=== PATIENT | male | born 1970 | race African-American/Black ===

== ENCOUNTER 2017-01-03 19:21 | Emergency (ER) | payer BC, OTHER ==
[2017-01-03] MEDS ORDERED: Penicillin V Potassium 500 MG Tab PO ONE (20:11)
[2017-01-03] MEDS ORDERED: Ibuprofen 800 MG Tab PO ONE (20:12)
--- NOTE | 2017-01-03 20:17 | EDM.PDOC ---
ED HPI GENERAL MEDICAL PROBLEM - General Chief Complaint: General Stated Complaint: PT HAS TOOTHACHE Time Seen by Provider: 01/03/17 20:03 Source of Information: Reports: Patient History Limitations: Reports: No limitations - History of Present Illness INITIAL COMMENTS - FREE TEXT/NARRATIVE: HISTORY AND PHYSICAL: History of present illness: [46 show male complaining of right jaw toothache. Third molar from the back. Painful and tender hurts with chewing. No chest pain shortness of breath fevers chills sweats headache or stiff neck she has not been able to see a dentist. He is a cavity there. No facial swelling or mass] Review of systems: As per history of present illness and below otherwise all systems reviewed and negative. Past medical history: As per history of present illness and as reviewed below otherwise noncontributory. Surgical history: As per history of present illness and as reviewed below otherwise noncontributory. Social history: No reported history of drug or alcohol abuse. Family history: As per history of present illness and as reviewed below otherwise noncontributory. Physical exam: #30 with cavity no soft tissue swelling or mass. Positive tenderness with percussion. Normal submentum and oropharynx. No anterior cervical adenopathy or facial asymmetry HEENT: Atraumatic, normocephalic, pupils reactive, negative for conjunctival pallor or scleral icterus, mucous membranes moist, throat clear, neck supple, nontender, trachea midline. Lungs: Clear to auscultation, breath sounds equal bilaterally, chest nontender. Heart: S1S2, regular, negative for clicks, rubs, or JVD. Abdomen: Soft, nondistended, nontender. Negative for masses or hepatosplenomegaly. Negative for costovertebral tenderness. Pelvis: Stable nontender. Genitourinary: Deferred. Rectal: Deferred. Extremities: Atraumatic, negative for cords or calf pain. Neurovascular unremarkable. Neuro: Awake, alert, oriented. Motor and sensory unremarkable throughout. Exam nonfocal. Diagnostics: [] Therapeutics: [] Impression: [] Plan: [Patient with toothache and cavity. Well-appearing afebrile otherwise benign exam. Will Rx penicillin patient aware to take NSAIDs and Tylenol followup PCP and dentist] Definitive disposition and diagnosis as appropriate pending reevaluation and review of above. tooth Pain Score (Numeric/FACES): 9 - Related Data Allergies Allergy/AdvReac Type Severity Reaction Status Date / Time No Known Allergies Allergy Verified 01/03/17 19:38 Home Meds: Home Meds . [No Known Home Meds] 03/02/15 [History] Past Medical History - Past Health History Medical/Surgical History: Denies Medical/Surgical History Other Endocrine/Metabolic History: borderline type 2 diabetis - Infectious Disease History Infectious Disease History: Reports: None Social & Family History - Family History Family Medical History: Noncontributory - Tobacco Use Smoking Status *Q: Never Smoker - Alcohol Use Days Per Week of Alcohol Use: 0 - Recreational Drug Use Recreational Drug Use: No ED ROS GENERAL - Review of Systems Review Of Systems: See Below (History of present illness) ED EXAM, GENERAL - Physical Exam Exam: See Below (History of present illness) Course - Vital Signs Last Recorded V/S: Last Vital Signs Temp 36.8 C 01/03/17 19:39 Pulse 74 01/03/17 19:39 Resp 18 01/03/17 19:39 BP 146/90 H 01/03/17 19:39 Pulse Ox 99 01/03/17 19:39 - Orders/Labs/Meds Orders: Active Orders 24 hr Category Date Time Status Ibuprofen [Motrin] Med 01/03/17 20:12 Once 800 mg PO ONETIME ONE Penicillin V Potassium [Veetids] Med 01/03/17 20:11 Once 500 mg PO Q12HR ONE Medication Orders Ibuprofen (Motrin) 800 mg PO ONETIME ONE Stop: 01/03/17 20:13 Penicillin V Potassium (Veetids) 500 mg PO Q12HR ONE Stop: 01/03/17 20:12 Meds: Medications Generic Name Dose Route Start Last Admin Trade Name Freq PRN Reason Stop Dose Admin Ibuprofen 800 mg 01/03/17 20:12 Motrin PO 01/03/17 20:13 ONETIME ONE Penicillin V Potassium 500 mg 01/03/17 20:11 Veetids PO 01/03/17 20:12 Q12HR ONE Departure - Departure Time of Disposition: 20:15 Disposition: Home, Self-Care 01 Condition: good Clinical Impression: Toothache, Caries Referrals: PCP,None [Primary Care Provider] - Forms: ED Department Discharge Additional Instructions: You have a cavity and causing a toothache. Finish penicillin as prescribed 4 times a day for 10 days. Take ibuprofen 800 mg every 6 hours as needed for pain and also take Tylenol every 4 hours if necessary. Followup with your dentist in 2-3 days and return immediately for new severe or worsening symptoms - My Orders Last 24 Hours: My Active Orders 01/03/17 20:11 Penicillin V Potassium [Veetids] 500 mg PO Q12HR ONE 01/03/17 20:12 Ibuprofen [Motrin] 800 mg PO ONETIME ONE - Assessment/Plan Last 24 Hours: My Active Orders 01/03/17 20:11 Penicillin V Potassium [Veetids] 500 mg PO Q12HR ONE 01/03/17 20:12 Ibuprofen [Motrin] 800 mg PO ONETIME ONE
[2017-01-03 21:07] VITALS: BP 138/79
== END 2017-01-03 20:27 | disposition home or self-care (01) ==
LOC: MW.ED 19:21
DX: K02.9 Dental caries, unspecified (principal)
CPT/HCPCS: 99283; A9270

== ENCOUNTER 2017-05-21 16:10 | Emergency (ER) | payer BC, OTHER ==
--- NOTE | 2017-05-21 16:39 | EDM.PDOC ---
ED HPI GENERAL MEDICAL PROBLEM - General Chief Complaint: Lower Extremity Injury/Pain Stated Complaint: LT FOOT HURTS Time Seen by Provider: 05/21/17 16:26 Source of Information: Reports: Patient History Limitations: Reports: No Limitations - History of Present Illness INITIAL COMMENTS - FREE TEXT/NARRATIVE: HISTORY AND PHYSICAL: [] 46-year-old black male presenting with pain to the left fourth toe History of Present Illness: []Last night patient hit his foot on the door jam as he was going through the door. He continues to have pain to the left fourth toe. Review of Systems: As per history of present illness and below otherwise all systems reviewed and negative. Past medical history: As per history of present illness and as reviewed below otherwise noncontributory. Surgical history: As per history of present illness and as reviewed below otherwise noncontributory. Social history: No reported history of drug or alcohol abuse. Family history: As per history of present illness and as reviewed below otherwise noncontributory. Physical exam: Alert and oriented gentleman answering questions appropriately speaking in full sentences HEENT: Atraumatic, normocehpalic, pupils reactive, negative for conjunctival pallor or scleral icterus, mucous membranes moist, throat clear, neck supple, nontender, trachea midline. Lungs: Clear to auscultation, breath sounds equal bilaterally, chest non tender. Heart: S1S2, regular, negative for clicks, rubs, or JVD. Abdomen: Soft, nondistended, nontender. Negative for masses or hepatossplenmegaly. Negative for costovertebral tenderness. Pelvis: Stable nontender. Genitourinary: Deferred. Rectal: Deferred Extremities: Mild edema to the fourth toe, pain upon palpation, negative for cords or calf pain. Neurovascular unremarkable. Neuro: Awake, alert, oriented. Cranial nerves II through XII unremarkable. Cerebellum unremarkable. Motor and sensory unremarkable throughout. Exam nonfocal. Diagnostics: [X-ray] Therapeutics: [] Impression: [] Plan: [] Definitive disposition and diagnosis as appropriate pending reevaluation and review of above. Onset: Sudden Duration: Hour(s): (Last night), Getting Worse Location: Reports: Lower Extremity, Left Left Feet Pain Score (Numeric/FACES): 7 - Related Data Allergies Allergy/AdvReac Type Severity Reaction Status Date / Time No Known Allergies Allergy Verified 01/03/17 19:38 Home Meds: Home Meds Blackseed Oil PRN 05/21/17 [History] Past Medical History - Past Health History Medical/Surgical History: Denies Medical/Surgical History Other Endocrine/Metabolic History: borderline type 2 diabetis - Infectious Disease History Infectious Disease History: Reports: None Social & Family History - Family History Family Medical History: Noncontributory - Tobacco Use Smoking Status *Q: Never Smoker - Alcohol Use Days Per Week of Alcohol Use: 0 - Recreational Drug Use Recreational Drug Use: No Review of Systems - Review of Systems Review Of Systems: ROS reveals no pertinent complaints other than HPI. ED EXAM, GENERAL - Physical Exam Exam: See Below (see dictation) Course - Vital Signs Last Recorded V/S: Last Vital Signs Temp 36.6 C 05/21/17 16:20 Pulse 81 05/21/17 16:20 Resp 18 05/21/17 16:20 BP 123/88 05/21/17 16:20 Pulse Ox 97 05/21/17 16:20 - Orders/Labs/Meds Orders: Active Orders 24 hr Category Date Time Status Toes Fourth Digit Lt T3 [CR] Stat Exams 05/21/17 16:30 Taken Departure - Departure Time of Disposition: 17:56 Disposition: Home, Self-Care 01 Condition: Good Clinical Impression: Fracture of phalanx of foot - Discharge Information Forms: ED Department Discharge Additional Instructions: The following information is given to patients seen in the emergency department who are being discharged to home. This information is to outline your options for follow-up care. We provide all patients seen in our emergency department with a follow-up referral. The need for follow-up, as well as the timing and circumstances, are variable depending upon the specifics of your emergency department visit. If you don't have a primary care physician on staff, we will provide you with a referral. We always advise you to contact your personal physician following an emergency department visit to inform them of the circumstance of the visit and for follow-up with them and/or the need for any referrals to a consulting specialist. The emergency department will also refer you to a specialist when appropriate. This referral assures that you have the opportunity for followup care with a specialist. All of these measure are taken in an effort to provide you with optimal care, which includes your followup. Under all circumstances we always encourage you to contact your private physician who remains a resource for coordinating your care. When calling for followup care, please make the office aware that this follow-up is from your recent emergency room visit. If for any reason you are refused follow-up, please contact the [facility] emergency department at and asked to speak to the emergency department charge nurse. Keep toe sakina taped. Third toe. Follow-up with Dr. Dumas advanced research programs director [facility] [address] [place] [phone] Please call for an appointment in the next 2 days - My Orders Last 24 Hours: My Active Orders 05/21/17 16:30 Toes Fourth Digit Lt T3 [CR] Stat - Assessment/Plan Last 24 Hours: My Active Orders 05/21/17 16:30 Toes Fourth Digit Lt T3 [CR] Stat
[2017-05-21 18:19] VITALS: BP 130/68
--- NOTE | 2017-05-22 10:15 | CR ---
EXAM DATE: 05/21/17 PATIENT'S AGE: 46 Patient: VICTORINA KELLY Facility: [place], [place] Site . Site : 1970 Study: XRay Extremity Left toe [id number]/[id number] 5:21:03 PM Ordering Physician: Doctor Harden Final Report: Indication: Injury to 4th toe. Technique: Left foot 4th digit three views. Comparison: None. Findings: There is an obliquely oriented mildly impacted fracture of the proximal 4th phalanx with possible intra-articular extension at the metatarsophalangeal joint. No additional acute osseous abnormality. No radio-opaque foreign body evident in the soft tissues. Impression: Fracture of the proximal 4th phalanx. Dictated by jJ Batista MD @ 05/21/2017 5:36:16 PM Dictated by: Jj Batista MD @ 05/21/2017 17:36:30 (Electronic Signature) Report Signed by Proxy. KAYLEE
== END 2017-05-21 18:17 | disposition home or self-care (01) ==
LOC: MW.ED 16:10
DX: S92.512A Displaced fracture of proximal phalanx of left lesser toe(s), initial encounter for closed fracture (principal); W22.8XXA Striking against or struck by other objects, initial encounter
CPT/HCPCS: 73660-26-T3; 73660-T3; 99282; 99283

== ENCOUNTER 2017-07-21 21:03 | Emergency (ER) | payer BC ==
[2017-07-21] MEDS ORDERED: Aspirin 81 MG Tab.Chew PO ONE (21:25)
[2017-07-21] MEDS ORDERED: Sodium Chloride 0.9% 10 ML Syringe FLUSH PRN (21:25)
[2017-07-21] MEDS ORDERED: Sodium Chloride 0.9% 2.5 ML Syringe FLUSH PRN (21:25)
--- NOTE | 2017-07-21 21:29 | EDM.PDOC ---
ED HPI GENERAL MEDICAL PROBLEM - General Chief Complaint: Chest Pain Stated Complaint: PT HAS CHEST PAINS Time Seen by Provider: 07/21/17 21:26 - History of Present Illness INITIAL COMMENTS - FREE TEXT/NARRATIVE: HISTORY AND PHYSICAL: History of present illness: Patient's 46-year-old black male no significant past medical history presents with concern of chest pain this only occurs when he coughs in his hip last several days he denies fever chills nausea vomiting shortness breath palpitations denies drug or alcohol abuse denies known cardiac disease. Review of systems: As per history of present illness and below otherwise all systems reviewed and negative. Past medical history: As per history of present illness and as reviewed below otherwise noncontributory. Surgical history: As per history of present illness and as reviewed below otherwise noncontributory. Social history: No reported history of drug or alcohol abuse. Family history: As per history of present illness and as reviewed below otherwise noncontributory. Physical exam: HEENT: Atraumatic, normocephalic, pupils reactive, negative for conjunctival pallor or scleral icterus, mucous membranes moist, throat clear, neck supple, nontender, trachea midline. Lungs: Clear to auscultation, breath sounds equal bilaterally, chest nontender. Heart: S1S2, regular, negative for clicks, rubs, or JVD. Abdomen: Soft, nondistended, nontender. Negative for masses or hepatosplenomegaly. Negative for costovertebral tenderness. Pelvis: Stable nontender. Genitourinary: Deferred. Rectal: Deferred. Extremities: Atraumatic, negative for cords or calf pain. Neurovascular unremarkable. Neuro: Awake, alert, oriented. Cranial nerves II through XII unremarkable. Cerebellum unremarkable. Motor and sensory unremarkable throughout. Exam nonfocal. Diagnostics: CBC CMP troponin PT/INR chest x-ray EKG Therapeutics: IV O2 monitor aspirin 324 mg by mouth Impression: #1 atypical chest pain Definitive disposition and diagnosis as appropriate pending reevaluation and review of above. Middle Chest Pain Score (Numeric/FACES): 2 - Related Data Allergies Allergy/AdvReac Type Severity Reaction Status Date / Time No Known Allergies Allergy Verified 01/03/17 19:38 Home Meds: Home Meds . [No Known Home Meds] 07/21/17 [History] Past Medical History - Past Health History Medical/Surgical History: Denies Medical/Surgical History HEENT History: Reports: None Cardiovascular History: Reports: None Respiratory History: Reports: None Gastrointestinal History: Reports: None Genitourinary History: Reports: None Musculoskeletal History: Reports: None Other Endocrine/Metabolic History: borderline type 2 diabetis - Infectious Disease History Infectious Disease History: Reports: None - Past Surgical History HEENT Surgical History: Reports: None Cardiovascular Surgical History: Reports: None Respiratory Surgical History: Reports: None GI Surgical History: Reports: None Male Surgical History: Reports: None Musculoskeletal Surgical History: Reports: None Social & Family History - Family History Family Medical History: Noncontributory - Tobacco Use Smoking Status *Q: Never Smoker Second Hand Smoke Exposure: No - Alcohol Use Days Per Week of Alcohol Use: 0 - Recreational Drug Use Recreational Drug Use: No ED ROS GENERAL - Review of Systems Review Of Systems: ROS reveals no pertinent complaints other than HPI. ED EXAM, GENERAL - Physical Exam Exam: See Below Course - Vital Signs Last Recorded V/S: Last Vital Signs Temp 36.4 C 07/21/17 21:15 Pulse 69 07/21/17 22:01 Resp 18 07/21/17 22:01 BP 130/85 07/21/17 22:01 Pulse Ox 100 07/21/17 22:01 - Orders/Labs/Meds Orders: Active Orders 24 hr Category Date Time Status Cardiac Monitoring [RC] . DIRECTED Care 07/21/17 21:25 Active EKG Documentation Completion [RC] STAT Care 07/21/17 21:25 Active Chest 1V Frontal [CR] Stat Exams 07/21/17 21:25 Taken CBC WITH AUTO DIFF [HEME] Stat Lab 07/21/17 21:25 Ordered COMPREHENSIVE METABOLIC PN,CMP [CHEM] Stat Lab 07/21/17 21:25 Ordered INR,PT,PROTHROMBIN TIME [COAG] Stat Lab 07/21/17 21:25 Ordered TROPONIN I [CHEM] Stat Lab 07/21/17 21:25 Ordered Sodium Chloride 0.9% [Normal Saline] 1,000 ml Med 07/21/17 21:30 Active IV STAT Sodium Chloride 0.9% [Saline Flush] Med 07/21/17 21:25 Active 10 ml FLUSH ASDIRECTED PRN Sodium Chloride 0.9% [Saline Flush] Med 07/21/17 21:25 Active 2.5 ml FLUSH ASDIRECTED PRN Saline Lock Insert [OM.PC] Stat Oth 07/21/17 21:25 Ordered Medication Orders Sodium Chloride (Normal Saline) 1,000 mls @ 125 mls/hr IV STAT DELIA Last Admin: 07/21/17 22:08 Dose: 125 mls/hr Sodium Chloride (Saline Flush) 10 ml FLUSH ASDIRECTED PRN PRN Reason: Keep Vein Open Sodium Chloride (Saline Flush) 2.5 ml FLUSH ASDIRECTED PRN PRN Reason: Keep Vein Open Meds: Medications Generic Name Dose Route Start Last Admin Trade Name Freq PRN Reason Stop Dose Admin Sodium Chloride 1,000 mls @ 125 mls/hr 07/21/17 21:30 07/21/17 22:08 Normal Saline IV 125 mls/hr STAT DELIA Administration Sodium Chloride 10 ml 07/21/17 21:25 Saline Flush FLUSH ASDIRECTED PRN Keep Vein Open Sodium Chloride 2.5 ml 07/21/17 21:25 Saline Flush FLUSH ASDIRECTED PRN Keep Vein Open Discontinued Medications Generic Name Dose Route Start Last Admin Trade Name Freq PRN Reason Stop Dose Admin Aspirin 324 mg 07/21/17 21:25 07/21/17 21:58 Aspirin PO 07/21/17 21:26 324 mg ONETIME ONE Administration Departure - Departure Time of Disposition: 22:10 Disposition: Home, Self-Care 01 Condition: Good Clinical Impression: Atypical chest pain - Discharge Information Referrals: PCP,None [Primary Care Provider] - Forms: ED Department Discharge Additional Instructions: The following information is given to patients seen in the emergency department who are being discharged to home. This information is to outline your options for follow-up care. We provide all patients seen in our emergency department with a follow-up referral. The need for follow-up, as well as the timing and circumstances, are variable depending upon the specifics of your emergency department visit. If you don't have a primary care physician on staff, we will provide you with a referral. We always advise you to contact your personal physician following an emergency department visit to inform them of the circumstance of the visit and for follow-up with them and/or the need for any referrals to a consulting specialist. The emergency department will also refer you to a specialist when appropriate. This referral assures that you have the opportunity for followup care with a specialist. All of these measure are taken in an effort to provide you with optimal care, which includes your followup. Under all circumstances we always encourage you to contact your private physician who remains a resource for coordinating your care. When calling for followup care, please make the office aware that this follow-up is from your recent emergency room visit. If for any reason you are refused follow-up, please contact the [facility] emergency department at and asked to speak to the emergency department charge nurse. [facility] [address] [place] [id number] Follow-up primary medical doctor and/or clinic about 1-2 days return as needed as discussed - My Orders Last 24 Hours: My Active Orders 07/21/17 21:25 Cardiac Monitoring [RC] . DIRECTED EKG Documentation Completion [RC] STAT Chest 1V Frontal [CR] Stat CBC WITH AUTO DIFF [HEME] Stat COMPREHENSIVE METABOLIC PN,CMP [CHEM] Stat INR,PT,PROTHROMBIN TIME [COAG] Stat TROPONIN I [CHEM] Stat Sodium Chloride 0.9% [Saline Flush] 10 ml FLUSH ASDIRECTED PRN Sodium Chloride 0.9% [Saline Flush] 2.5 ml FLUSH ASDIRECTED PRN Saline Lock Insert [OM.PC] Stat 07/21/17 21:30 Sodium Chloride 0.9% [Normal Saline] 1,000 ml IV STAT - Assessment/Plan Last 24 Hours: My Active Orders 07/21/17 21:25 Cardiac Monitoring [RC] . DIRECTED EKG Documentation Completion [RC] STAT Chest 1V Frontal [CR] Stat CBC WITH AUTO DIFF [HEME] Stat COMPREHENSIVE METABOLIC PN,CMP [CHEM] Stat INR,PT,PROTHROMBIN TIME [COAG] Stat TROPONIN I [CHEM] Stat Sodium Chloride 0.9% [Saline Flush] 10 ml FLUSH ASDIRECTED PRN Sodium Chloride 0.9% [Saline Flush] 2.5 ml FLUSH ASDIRECTED PRN Saline Lock Insert [OM.PC] Stat 07/21/17 21:30 Sodium Chloride 0.9% [Normal Saline] 1,000 ml IV STAT
[2017-07-21] MEDS ORDERED: Sodium Chloride 0.9% 1,000 ML IV SCH (21:30)
[2017-07-21 23:03] LABS: CHLORIDE,CL 108 mmol/L (98-110); SODIUM,NA 140 mmol/L (136-146)
[2017-07-22 05:43] VITALS: BP 131/86
--- NOTE | 2017-07-22 19:58 | CR ---
EXAM DATE: 07/21/17 PATIENT'S AGE: 46 Patient: VICTORINA KELLY Facility: [place], [place] Site . Site : 1970 Study: XRay Chest [id number]/21/2017 10:06:07 PM Ordering Physician: Doctor Harden Final Report: INDICATION: pain/sob TECHNIQUE: Chest 1 view. COMPARISON: None FINDINGS: Cardiovascular and mediastinum: Heart size and vasculature are normal in caliber and appearance. Mediastinum is within normal limits. Lungs and pleural space: Lungs are clear. No sign of infiltrate or mass. No sign of pleural effusion. No pneumothorax. Bones and soft tissues: No significant findings. IMPRESSION: Unremarkable chest. Dictated by: Nelson Lopez MD @ 07/21/2017 22:42:14 (Electronic Signature) Report Signed by Proxy. [facility]ITALWes
== END 2017-07-21 23:56 | disposition home or self-care (01) ==
LOC: MW.ED 21:03
DX: R07.89 Other chest pain (principal)
CPT/HCPCS: 36415; 71010; 80053; 84484; 85025; 85610; 93005; 96360; 96361; 99285; A9270; J7040; 99282

== ENCOUNTER 2017-08-05 13:31 | Emergency (ER) | payer BC ==
[2017-08-05 13:47] VITALS: BP 138/75
--- NOTE | 2017-08-05 14:31 | EDM.PDOC ---
ED HPI GENERAL MEDICAL PROBLEM - General Chief Complaint: Respiratory Problem Stated Complaint: COUGH,CHILLS Time Seen by Provider: 08/05/17 14:15 Source of Information: Reports: Patient History Limitations: Reports: No Limitations - History of Present Illness INITIAL COMMENTS - FREE TEXT/NARRATIVE: HISTORY AND PHYSICAL: History of present illness: [Comes to the ER complaining of cough and cold symptoms for the past 3 days. He was sent home yesterday from work due to his coughing. He is not coughing up any sputum. Denies shortness of breath and wheezing. No upset stomach nausea or vomiting. He's had no ill contacts. Has been taking some NyQuil for his symptoms which make him sleep but do not provide any pertinent. He's not had any fever or chills. Mild runny nose that is clear. No earaches or sore throats. Denies any past medical history. No history of tobacco use.] Review of systems: As per history of present illness and below otherwise all systems reviewed and negative. Past medical history: As per history of present illness and as reviewed below otherwise noncontributory. Surgical history: As per history of present illness and as reviewed below otherwise noncontributory. Social history: No reported history of drug or alcohol abuse. Family history: As per history of present illness and as reviewed below otherwise noncontributory. Physical exam: Gen.: Well-developed well-nourished black male in no acute distress. HEENT: Atraumatic, normocephalic. TMs are pearly richardson and without erythema bilaterally. Nares are patent without discharge. Oral mucous membranes are pink and moist. Throat is clear. Neck is supple. No lymphadenopathy is appreciated. Lungs: Clear to auscultation, breath sounds equal bilaterally. No wheezing crackles or rales. Heart: S1S2, regular. Abdomen: Soft, nondistended, nontender. Pelvis: Stable nontender. Genitourinary: Deferred. Rectal: Deferred. Extremities: Atraumatic. Neurovascular unremarkable. Neuro: Awake, alert, oriented. Motor and sensory unremarkable throughout. Exam nonfocal. Impression: [Viral cold] Plan: [Discussed with patient that he has a viral cold. Recommend Robitussin or Delsym. Establish with a local PCP. He is in agreement with today's plan.] Definitive disposition and diagnosis as appropriate pending reevaluation and review of above. - Related Data Allergies Allergy/AdvReac Type Severity Reaction Status Date / Time No Known Allergies Allergy Verified 08/05/17 13:47 Home Meds: Home Meds . [No Known Home Meds] 07/21/17 [History] Past Medical History - Past Health History Medical/Surgical History: Denies Medical/Surgical History HEENT History: Reports: None Cardiovascular History: Reports: None Respiratory History: Reports: None Gastrointestinal History: Reports: None Genitourinary History: Reports: None Musculoskeletal History: Reports: None Other Endocrine/Metabolic History: borderline type 2 diabetis - Infectious Disease History Infectious Disease History: Reports: None, Chicken Pox - Past Surgical History HEENT Surgical History: Reports: None Cardiovascular Surgical History: Reports: None Respiratory Surgical History: Reports: None GI Surgical History: Reports: None Male Surgical History: Reports: None Musculoskeletal Surgical History: Reports: None Social & Family History - Family History Family Medical History: Noncontributory - Tobacco Use Smoking Status *Q: Never Smoker Second Hand Smoke Exposure: No - Alcohol Use Days Per Week of Alcohol Use: 0 - Recreational Drug Use Recreational Drug Use: No ED ROS GENERAL - Review of Systems Review Of Systems: ROS reveals no pertinent complaints other than HPI. ED EXAM, GENERAL - Physical Exam Exam: See Below Course - Vital Signs Last Recorded V/S: Last Vital Signs Temp 98.5 F 08/05/17 13:45 Pulse 90 08/05/17 13:45 Resp 18 08/05/17 13:45 BP 138/75 08/05/17 13:45 Pulse Ox 95 08/05/17 13:45 Departure - Departure Time of Disposition: 14:40 Disposition: Home, Self-Care 01 Condition: Good Clinical Impression: Cold virus - Discharge Information Instructions: Upper Respiratory Infection, Adult Referrals: PCP,Unknown [Primary Care Provider] - Forms: ED Department Discharge Additional Instructions: The following information is given to patients seen in the emergency department who are being discharged to home. This information is to outline your options for follow-up care. We provide all patients seen in our emergency department with a follow-up referral. The need for follow-up, as well as the timing and circumstances, are variable depending upon the specifics of your emergency department visit. If you don't have a primary care physician on staff, we will provide you with a referral. We always advise you to contact your personal physician following an emergency department visit to inform them of the circumstance of the visit and for follow-up with them and/or the need for any referrals to a consulting specialist. The emergency department will also refer you to a specialist when appropriate. This referral assures that you have the opportunity for follow-up care with a specialist. All of these measure are taken in an effort to provide you with optimal care, which includes your follow-up. Under all circumstances we always encourage you to contact your private physician who remains a resource for coordinating your care. When calling for follow-up care, please make the office aware that this follow-up is from your recent emergency room visit. If for any reason you are refused follow-up, please contact the [facility] emergency department at and asked to speak to the emergency department charge nurse. [facility] [address] [place] [id number] Establish care with a local primary care provider. Follow-up there in the next 2 -3 days. Push fluids, get plenty of rest. Mucinex will help with chest congestion, taking Robitussin or Delsym cough syrup as needed. Follow directions on the bottle. Return to ER as needed as discussed.
== END 2017-08-05 14:41 | disposition home or self-care (01) ==
LOC: MW.ED 13:31
DX: J00 Acute nasopharyngitis [common cold] (principal)
CPT/HCPCS: 99281; 99282

== ENCOUNTER 2018-04-17 18:22 | Emergency (ER) | payer BC ==
--- NOTE | 2018-04-17 19:33 | EDM.PDOC ---
ED HPI GENERAL MEDICAL PROBLEM - General Chief Complaint: Skin Complaint Stated Complaint: BITE Time Seen by Provider: 04/17/18 19:32 Source of Information: Reports: Patient History Limitations: Reports: No Limitations - History of Present Illness INITIAL COMMENTS - FREE TEXT/NARRATIVE: HISTORY AND PHYSICAL: History of present illness: Jony is a 47-year-old male here with a possible bite to his left butt cheek. He states that 4 days ago he was working and he thought he felt something bite his bottom. He had a bump there that he squeezed it has gotten some pus come out. He denies any fevers or chills. Review of systems: As per history of present illness and below otherwise all systems reviewed and negative. Past medical history: As per history of present illness and as reviewed below otherwise noncontributory. Surgical history: As per history of present illness and as reviewed below otherwise noncontributory. Social history: No reported history of drug or alcohol abuse. Family history: As per history of present illness and as reviewed below otherwise noncontributory. Physical exam: General: She is sitting comfortably in no acute distress HEENT: Atraumatic, normocephalic, pupils reactive, negative for conjunctival pallor or scleral icterus, mucous membranes moist, throat clear, neck supple, nontender, trachea midline. Lungs: Clear to auscultation, breath sounds equal bilaterally, chest nontender. Heart: S1S2, regular, negative for clicks, rubs, or JVD. Skin: There is a 1 cm draining abscess to the left buttock without surrounding erythema and no fluctuance. Neuro: Awake, alert, oriented. Cranial nerves II through XII unremarkable. Cerebellum unremarkable. Motor and sensory unremarkable throughout. Exam nonfocal. Notes: Diagnostics: [] Therapeutics: Bactrim DS Impression: Abscess Plan: #1 Take antibiotic as directed. #2 keep the area clean and dry and avoid squeezing/popping #3 Follow up with primary care provider #4 Return to ED as needed as discussed Definitive disposition and diagnosis as appropriate pending reevaluation and review of above. left buttock Pain Score (Numeric/FACES): 10 - Related Data Allergies Allergy/AdvReac Type Severity Reaction Status Date / Time No Known Allergies Allergy Verified 04/17/18 19:21 Home Meds: Home Meds Sulfamethoxazole/Trimethoprim [Bactrim Ds Tablet] 1 each PO BID #20 tablet 04/17 [Rx] Past Medical History - Past Health History Medical/Surgical History: Denies Medical/Surgical History HEENT History: Reports: None Cardiovascular History: Reports: None Respiratory History: Reports: None Gastrointestinal History: Reports: None Genitourinary History: Reports: None Musculoskeletal History: Reports: None Other Endocrine/Metabolic History: borderline type 2 diabetis - Infectious Disease History Infectious Disease History: Reports: None, Chicken Pox - Past Surgical History HEENT Surgical History: Reports: None Cardiovascular Surgical History: Reports: None Respiratory Surgical History: Reports: None GI Surgical History: Reports: None Male Surgical History: Reports: None Endocrine Surgical History: Reports: None Musculoskeletal Surgical History: Reports: None Social & Family History - Family History Family Medical History: Noncontributory - Tobacco Use Smoking Status *Q: Never Smoker Second Hand Smoke Exposure: No - Caffeine Use Caffeine Use: Reports: None - Recreational Drug Use Recreational Drug Use: No ED ROS GENERAL - Review of Systems Review Of Systems: ROS reveals no pertinent complaints other than HPI. ED EXAM, SKIN/RASH Exam: See Below (see Dictation) Course - Vital Signs Last Recorded V/S: Last Vital Signs Temp 36.5 C 04/17/18 19:18 Pulse 77 04/17/18 19:18 Resp 20 04/17/18 19:18 BP 139/86 04/17/18 19:18 Pulse Ox 99 04/17/18 19:18 - Orders/Labs/Meds Orders: Active Orders 24 hr Category Date Time Status Sulfamethoxazole/Trimethoprim [Septra DS] Med 04/17/18 19:45 Ordered 1 tab PO DAILY Medication Orders Trimethoprim/Sulfamethoxazole (Septra Ds) 1 tab PO DAILY DELIA Meds: Medications Generic Name Dose Route Start Last Admin Trade Name Freq PRN Reason Stop Dose Admin Trimethoprim/Sulfamethoxazole 1 tab 04/17/18 19:45 Septra Ds PO DAILY DELIA Departure - Departure Time of Disposition: 19:35 Disposition: Home, Self-Care 01 Condition: Good Clinical Impression: Abscess - Discharge Information Prescriptions: Sulfamethoxazole/Trimethoprim [Bactrim Ds Tablet] 1 each PO BID #20 tablet Referrals: PCP,None [Primary Care Provider] - Forms: ED Department Discharge Additional Instructions: The following information is given to patients seen in the emergency department who are being discharged to home. This information is to outline your options for follow-up care. We provide all patients seen in our emergency department with a follow-up referral. The need for follow-up, as well as the timing and circumstances, are variable depending upon the specifics of your emergency department visit. If you don't have a primary care physician on staff, we will provide you with a referral. We always advise you to contact your personal physician following an emergency department visit to inform them of the circumstance of the visit and for follow-up with them and/or the need for any referrals to a consulting specialist. The emergency department will also refer you to a specialist when appropriate. This referral assures that you have the opportunity for follow-up care with a specialist. All of these measure are taken in an effort to provide you with optimal care, which includes your follow-up. Under all circumstances we always encourage you to contact your private physician who remains a resource for coordinating your care. When calling for follow-up care, please make the office aware that this follow-up is from your recent emergency room visit. If for any reason you are refused follow-up, please contact the [facility] Emergency Department at and asked to speak to the emergency department charge nurse. [facility] [address] [place] [id number] [facility] [address] [place] [phone] #1 Take antibiotic as directed. #2 keep the area clean and dry and avoid squeezing/popping #3 Follow up with primary care provider #4 Return to ED as needed as discussed - My Orders Last 24 Hours: My Active Orders 04/17/18 19:45 Sulfamethoxazole/Trimethoprim [Septra DS] 1 tab PO DAILY - Assessment/Plan Last 24 Hours: My Active Orders 04/17/18 19:45 Sulfamethoxazole/Trimethoprim [Septra DS] 1 tab PO DAILY
[2018-04-17] MEDS ORDERED: Sulfamethoxazole/Trimethoprim 800-160 MG Tab PO SCH (19:45)
[2018-04-17 19:50] VITALS: BP 130/84
== END 2018-04-17 19:45 | disposition home or self-care (01) ==
LOC: MW.ED 18:22
DX: L02.31 Cutaneous abscess of buttock (principal)
CPT/HCPCS: 99282

== ENCOUNTER 2018-10-23 06:27 | Observation (INO) | payer BC, OTHER ==
--- NOTE | 2018-10-23 06:38 | EDM.PDOC ---
ED HPI GENERAL MEDICAL PROBLEM - General Chief Complaint: Chest Pain Stated Complaint: CHEST PAINS Time Seen by Provider: 10/23/18 07:48 - History of Present Illness INITIAL COMMENTS - FREE TEXT/NARRATIVE: HISTORY AND PHYSICAL: History of present illness: Patient's 48-year-old black male no significant past medical history presents with concern of chest pain that he states been there for approximately 2-3 days he states is slightly worse today this but no associated shortness of breath palpitations nausea vomiting or diaphoresis this is vaguely described without clear palliating or aggravating factors. Patient states he's also had a cough over the last several days. Review of systems: As per history of present illness and below otherwise all systems reviewed and negative. Past medical history: As per history of present illness and as reviewed below otherwise noncontributory. Surgical history: As per history of present illness and as reviewed below otherwise noncontributory. Social history: No reported history of drug or alcohol abuse. Family history: As per history of present illness and as reviewed below otherwise noncontributory. Physical exam: HEENT: Atraumatic, normocephalic, pupils reactive, negative for conjunctival pallor or scleral icterus, mucous membranes moist, throat clear, neck supple, nontender, trachea midline. Lungs: Clear to auscultation, breath sounds equal bilaterally, chest nontender. Heart: S1S2, regular, negative for clicks, rubs, or JVD. Abdomen: Soft, nondistended, nontender. Negative for masses or hepatosplenomegaly. Negative for costovertebral tenderness. Pelvis: Stable nontender. Genitourinary: Deferred. Rectal: Deferred. Extremities: Atraumatic, negative for cords or calf pain. Neurovascular unremarkable. Neuro: Awake, alert, oriented. Cranial nerves II through XII unremarkable. Cerebellum unremarkable. Motor and sensory unremarkable throughout. Exam nonfocal. Diagnostics: CBC CMP PT/INR troponin chest x-ray EKG influenza screen Therapeutics: IV O2 monitor Impression: #1 atypical chest pain Definitive disposition and diagnosis as appropriate pending reevaluation and review of above. - Related Data Allergies Allergy/AdvReac Type Severity Reaction Status Date / Time No Known Allergies Allergy Verified 10/23/18 06:44 Home Meds: Home Meds . [No Known Home Meds] 10/23/18 [History] Past Medical History - Past Health History Medical/Surgical History: Denies Medical/Surgical History HEENT History: Reports: None Cardiovascular History: Reports: None Respiratory History: Reports: None Gastrointestinal History: Reports: None Genitourinary History: Reports: None Musculoskeletal History: Reports: None Other Endocrine/Metabolic History: borderline type 2 diabetis - Infectious Disease History Infectious Disease History: Reports: None, Chicken Pox - Past Surgical History HEENT Surgical History: Reports: None Cardiovascular Surgical History: Reports: None Respiratory Surgical History: Reports: None GI Surgical History: Reports: None Male Surgical History: Reports: None Endocrine Surgical History: Reports: None Musculoskeletal Surgical History: Reports: None Social & Family History - Family History Family Medical History: Noncontributory - Caffeine Use Caffeine Use: Reports: None ED ROS GENERAL - Review of Systems Review Of Systems: ROS reveals no pertinent complaints other than HPI. ED EXAM, GENERAL - Physical Exam Exam: See Below (dictation) Course - Vital Signs Last Recorded V/S: Last Vital Signs Temp 36.3 C 10/23/18 06:27 Pulse 69 10/23/18 07:43 Resp 16 10/23/18 07:43 BP 143/102 H 10/23/18 07:43 Pulse Ox 98 10/23/18 07:43 - Orders/Labs/Meds Orders: Active Orders 24 hr Category Date Time Status EKG Documentation Completion [RC] STAT Care 10/23/18 06:41 Active Oxygen Therapy [RC] ASDIRECTED Care 10/23/18 06:41 Active Sodium Chloride 0.9% [Saline Flush] Med 10/23/18 06:41 Active 10 ml FLUSH ASDIRECTED PRN Sodium Chloride 0.9% [Saline Flush] Med 10/23/18 06:41 Active 2.5 ml FLUSH ASDIRECTED PRN Saline Lock Insert [OM.PC] Stat Oth 10/23/18 06:41 Ordered Medication Orders Sodium Chloride (Saline Flush) 10 ml FLUSH ASDIRECTED PRN PRN Reason: Keep Vein Open Sodium Chloride (Saline Flush) 2.5 ml FLUSH ASDIRECTED PRN PRN Reason: Keep Vein Open Labs: Laboratory Tests 10/23/18 10/23/18 10/23/18 Range/Units 06:40 06:40 06:40 WBC 6.78 (4.0-11.0) K/uL RBC 5.27 (4.50-5.90) M/uL Hgb 13.3 (13.0-17.0) g/dL Hct 41.3 (38.0-50.0) % MCV 78.4 L (80.0-98.0) fL MCH 25.2 L (27.0-32.0) pg MCHC 32.2 (31.0-37.0) g/dL RDW Std Deviation 40.9 (28.0-62.0) fl RDW Coeff of Manuel 14 (11.0-15.0) % Plt Count 218 (150-400) K/uL MPV 9.70 (7.40-12.00) fL Neut % (Auto) 54.9 (48.0-80.0) % Lymph % (Auto) 32.6 (16.0-40.0) % [place] % (Auto) 10.0 (0.0-15.0) % Eos % (Auto) 2.1 (0.0-7.0) % Baso % (Auto) 0.4 (0.0-1.5) % Neut # (Auto) 3.7 (1.4-5.7) K/uL Lymph # (Auto) 2.2 (0.6-2.4) K/uL [place] # (Auto) 0.7 (0.0-0.8) K/uL Eos # (Auto) 0.1 (0.0-0.7) K/uL Baso # (Auto) 0.0 (0.0-0.1) K/uL Nucleated RBC % 0.0 /100WBC Nucleated RBCs # 0 K/uL INR 1.02 Sodium 141 (136-148) mmol/L Potassium 3.9 (3.5-5.1) mmol/L Chloride 106 (98-107) mmol/L Carbon Dioxide 25.6 (21.0-32.0) mmol/L BUN 11 (7.0-18.0) mg/dL Creatinine 0.9 (0.8-1.3) mg/dL Est Cr Clr Drug Dosing TNP Estimated GFR (MDRD) > 60.0 ml/min Glucose 120 H (74-106) mg/dL Calcium 9.3 (8.5-10.1) mg/dL Total Bilirubin 0.3 (0.2-1.0) mg/dL AST 40 H (15-37) IU/L ALT 85 H (14-63) IU/L Alkaline Phosphatase 75 (46-116) U/L Troponin I < 0.050 (0.000-0.056) ng/mL Total Protein 8.6 H (6.4-8.2) g/dL Albumin 3.4 (3.4-5.0) g/dL Globulin 5.2 H (2.6-4.0) g/dL Albumin/Globulin Ratio 0.7 L (0.9-1.6) Meds: Medications Generic Name Dose Route Start Last Admin Trade Name Freq PRN Reason Stop Dose Admin Sodium Chloride 10 ml 10/23/18 06:41 Saline Flush FLUSH ASDIRECTED PRN Keep Vein Open Sodium Chloride 2.5 ml 10/23/18 06:41 Saline Flush FLUSH ASDIRECTED PRN Keep Vein Open Departure - Departure Time of Disposition: 07:48 Disposition: Refer to Observation Condition: Good Clinical Impression: Chest pain - Discharge Information Forms: ED Department Discharge - My Orders Last 24 Hours: My Active Orders 10/23/18 06:41 EKG Documentation Completion [RC] STAT Oxygen Therapy [RC] ASDIRECTED Sodium Chloride 0.9% [Saline Flush] 10 ml FLUSH ASDIRECTED PRN Sodium Chloride 0.9% [Saline Flush] 2.5 ml FLUSH ASDIRECTED PRN Saline Lock Insert [OM.PC] Stat - Assessment/Plan Last 24 Hours: My Active Orders 10/23/18 06:41 EKG Documentation Completion [RC] STAT Oxygen Therapy [RC] ASDIRECTED Sodium Chloride 0.9% [Saline Flush] 10 ml FLUSH ASDIRECTED PRN Sodium Chloride 0.9% [Saline Flush] 2.5 ml FLUSH ASDIRECTED PRN Saline Lock Insert [OM.PC] Stat
[2018-10-23] MEDS ORDERED: Sodium Chloride 0.9% 2.5 ML Syringe FLUSH PRN (06:41)
[2018-10-23] MEDS ORDERED: Sodium Chloride 0.9% 10 ML Syringe FLUSH PRN (06:41)
[2018-10-23 07:15] LABS: CHLORIDE,CL 106 mmol/L (98-107); SODIUM,NA 141 mmol/L (136-148)
--- NOTE | 2018-10-23 07:33 | CR ---
INDICATION: Chest pain. TECHNIQUE: Portable chest. COMPARISON: 07/21/2017. FINDINGS: Heart and mediastinum are unchanged. Lungs are clear. No consolidations or pleural effusions are identified. Trachea is midline. IMPRESSION: No evidence of acute disease. Dictated by Ryan Armstrong MD @ Oct 23 2018 7:30AM Signed by Dr. Ryan Armstrong @ Oct 23 2018 7:31AM
[2018-10-23] MEDS ORDERED: Acetaminophen 325 MG Tab PO PRN (08:49)
[2018-10-23] MEDS ORDERED: Ondansetron 4 MG Tab.DIS PO PRN (08:49)
[2018-10-23] MEDS ORDERED: Aspirin 81 MG Tab.Chew PO ONE (08:50)
--- NOTE | 2018-10-23 08:57 | PCM.HP ---
H&P History of Present Illness - General Date of Service: 10/23/18 Admit Problem/Dx: Admission Diagnosis/Problem Admission Diagnosis/Problem Chest pain Source of Information: Patient, Family (, Shayna, at bedside) History Limitations: Reports: No Limitations - History of Present Illness Initial Comments - Free Text/Narative: This 48 year old male with pmh of borderline DM presented to the ED with complaints of chest pain, that is midsternal and has been present since Sunday morning. He reports this pain has been intermittent, pressure like at times. He reports nothing seems to make it better per se. Nothing really makes it worse, just over the last couple days it has continued and slowly increased in intensity, /10 in the ED. He denies nausea, radiation of pain, diaphoresis or lightheadedness. He reports prior to having this pain, he ate spicy hot wings and queso dip, then in the am started having this pain. He denies CAD, HTN , but reports he has been told in the past he has borderline DM, but then told he was fine. Not currently taking any medications, besides vitamins and supplements at home. He denies tobacco use, alcohol use or recreational drug use. He is unsure of father's history, mother when he was 2, non cardiac related. Brother had MIs with stenting and CABG in his 40s along with pacemaker placements. In the ED labwork WNL, fasting BS elevated at 120. BP elevated at 140/90-100s. EKG reveals SR with ST elevation, which appeared to be more repolarization. He was admitted observation for atypical chest pain. chest Pain Score (Numeric/FACES): 6 - Related Data Allergies/Adverse Reactions: Allergies Allergy/AdvReac Type Severity Reaction Status Date / Time No Known Allergies Allergy Verified 10/23/18 06:44 Home Medications: Home Meds Ketoconazole 5 - 10 ml TP Q3D #120 ml 10/23/18 [Rx] hydroCHLOROthiazide [Hydrochlorothiazide] 12.5 mg PO DAILY #30 cap 10/23/18 [Rx] Past Medical History - Past Health History Medical/Surgical History: Denies Medical/Surgical History HEENT History: Reports: None Cardiovascular History: Reports: None. Denies: CAD, High Cholesterol, Hypertension, [place] Respiratory History: Reports: None. Denies: COPD, SOB Gastrointestinal History: Reports: None. Denies: GI Bleed Genitourinary History: Reports: None. Denies: Chronic Renal Insuffiency Musculoskeletal History: Reports: None Neurological History: Reports: None. Denies: CVA, TIA Endocrine/Metabolic History: Reports: Obesity/BMI 30+, Other (See Below) Other Endocrine/Metabolic History: borderline type 2 diabetes - Infectious Disease History Infectious Disease History: Reports: None, Chicken Pox - Past Surgical History HEENT Surgical History: Reports: None Cardiovascular Surgical History: Reports: None Respiratory Surgical History: Reports: None GI Surgical History: Reports: None Male Surgical History: Reports: None Endocrine Surgical History: Reports: None Musculoskeletal Surgical History: Reports: None Social & Family History - Family History Family Medical History: Noncontributory - Tobacco Use Smoking Status *Q: Never Smoker - Caffeine Use Caffeine Use: Reports: None - Alcohol Use Alcohol Use History: No - Recreational Drug Use Recreational Drug Use: No - Living Situation & Occupation Living situation: Reports: Occupation: Employed H&P Review of Systems - Review of Systems: Review Of Systems: See Below General: Reports: No Symptoms. Denies: Fever, Chills, Malaise, Weakness HEENT: Reports: No Symptoms. Denies: Headaches, Sinus Congestion, Sore Throat, Vertigo Pulmonary: Reports: No Symptoms. Denies: Shortness of Breath, Wheezing, Cough, Sputum Cardiovascular: Reports: Chest Pain (not currently having). Denies: Palpitations, Edema, Syncope, Blood Pressure Problem Gastrointestinal: Reports: No Symptoms. Denies: Abdominal Pain, Black Stool, Decreased Appetite, Nausea, Vomiting Genitourinary: Reports: No Symptoms. Denies: Dysuria, Frequency, Burning Musculoskeletal: Reports: No Symptoms. Denies: Neck Pain Skin: Reports: Rash (L scalp) Psychiatric: Reports: No Symptoms Neurological: Reports: No Symptoms Hematologic/Lymphatic: Reports: No Symptoms Immunologic: Reports: No Symptoms Exam - Exam Exam: See Below - Vital Signs Vital Signs: Last Vital Signs Temp 97.4 F 10/23/18 06:27 Pulse 68 10/23/18 08:50 Resp 16 10/23/18 08:50 BP 145/98 H 10/23/18 08:50 Pulse Ox 100 10/23/18 08:50 Weight: 123 kg - Exam General: Alert, Oriented, Cooperative HEENT: Conjunctiva Clear, Mucosa Moist & [place], Posterior Pharynx Clear Neck: Supple Lungs: Clear to Auscultation, Normal Respiratory Effort Cardiovascular: Regular Rate, Regular Rhythm, Normal S1, Normal S2. No: Systolic Murmur GI/Abdominal Exam: Normal Bowel Sounds, Soft, Non-Tender, No Organomegaly Back Exam: Normal Inspection, Full Range of Motion Extremities: Normal Inspection, Normal Range of Motion, Non-Tender, No Pedal Edema Neuro Extensive - Mental Status: Alert, Oriented x3 Neuro Extensive - Motor, Sensory, Reflexes: CN II-XII Intact Psychiatric: Alert, Normal Affect, Normal Mood - Patient Data Lab Results Last 24 hrs: Laboratory Results - last 24 hr 10/23/18 10/23/18 10/23/18 Range/Units 06:40 06:40 06:40 WBC 6.78 (4.0-11.0) K/uL RBC 5.27 (4.50-5.90) M/uL Hgb 13.3 (13.0-17.0) g/dL Hct 41.3 (38.0-50.0) % MCV 78.4 L (80.0-98.0) fL MCH 25.2 L (27.0-32.0) pg MCHC 32.2 (31.0-37.0) g/dL RDW Std Deviation 40.9 (28.0-62.0) fl RDW Coeff of Manuel 14 (11.0-15.0) % Plt Count 218 (150-400) K/uL MPV 9.70 (7.40-12.00) fL Neut % (Auto) 54.9 (48.0-80.0) % Lymph % (Auto) 32.6 (16.0-40.0) % Marshall % (Auto) 10.0 (0.0-15.0) % Eos % (Auto) 2.1 (0.0-7.0) % Baso % (Auto) 0.4 (0.0-1.5) % Neut # (Auto) 3.7 (1.4-5.7) K/uL Lymph # (Auto) 2.2 (0.6-2.4) K/uL Marshall # (Auto) 0.7 (0.0-0.8) K/uL Eos # (Auto) 0.1 (0.0-0.7) K/uL Baso # (Auto) 0.0 (0.0-0.1) K/uL Nucleated RBC % 0.0 /100WBC Nucleated RBCs # 0 K/uL INR 1.02 Sodium 141 (136-148) mmol/L Potassium 3.9 (3.5-5.1) mmol/L Chloride 106 (98-107) mmol/L Carbon Dioxide 25.6 (21.0-32.0) mmol/L BUN 11 (7.0-18.0) mg/dL Creatinine 0.9 (0.8-1.3) mg/dL Est Cr Clr Drug Dosing TNP Estimated GFR (MDRD) > 60.0 ml/min Glucose 120 H (74-106) mg/dL Calcium 9.3 (8.5-10.1) mg/dL Total Bilirubin 0.3 (0.2-1.0) mg/dL AST 40 H (15-37) IU/L ALT 85 H (14-63) IU/L Alkaline Phosphatase 75 (46-116) U/L Troponin I < 0.050 (0.000-0.056) ng/mL Total Protein 8.6 H (6.4-8.2) g/dL Albumin 3.4 (3.4-5.0) g/dL Globulin 5.2 H (2.6-4.0) g/dL Albumin/Globulin Ratio 0.7 L (0.9-1.6) Result Diagrams: 10/23/18 06:40 10/23/18 06:40 Jb Results Last 24 hrs: Microbiology 10/23/18 06:45 Influenza Type A Antigen Screen - Final Nasopharyngeal Swab NEGATIVE INFLUENZA A VIRUS AG Influenza Type B Antigen Screen - Final NEGATIVE INFLUENZA B VIRUS AG EKG INTERPRETATION EKG Date: 10/23/18 Rhythm: NSR Rate (Beats/Min): 68 P-Wave: Present QRS: Normal ST-T: Elevated (repolarization) QT: Normal *Q Meaningful Use (ADM) - VTE Risk Assess *Q Each Risk Factor Represents 1 Point: Age 41 - 59 years Total Score 1 Point Risk Factors: 1 Each Risk Factor Represents 2 Points: None Total Score 2 Point Risk Factors: 0 Each Risk Factor Represents 3 Points: None Total Score 3 Point Risk Factors: 0 Each Risk Factor Represents 5 Points: None Total Score 5 Point Risk Factors: 0 Venous Thromboembolism Risk Factor Score *Q: 1 - Problem List (1) Chest pain SNOMED Code(s): 17307934 ICD Code: R07.9 - CHEST PAIN, UNSPECIFIED Status: Acute (2) Borderline type 2 diabetes mellitus SNOMED Code(s): 783451310 ICD Code: R73.03 - PREDIABETES Status: Chronic Problem List Initiated/Reviewed/Updated: Yes Orders Last 24hrs: Active Orders 24 hr Category Date Time Status Patient Status [ADT] Stat ADT 10/23/18 07:49 Active EKG Documentation Completion [RC] STAT Care 10/23/18 06:41 Active Intake and Output [RC] QSHIFT Care 10/23/18 08:49 Ordered Oxygen Therapy [RC] PRN Care 10/23/18 08:49 Ordered Telemetry Monitoring [Cardiac Monitoring] [RC] . Care 10/23/18 08:51 Ordered DIRECTED Up ad Breanna [RC] ASDIRECTED Care 10/23/18 08:49 Ordered VTE/DVT Education [RC] PER UNIT ROUTINE Care 10/23/18 08:49 Ordered Vital Signs [RC] Q4H Care 10/23/18 08:49 Ordered Heart Healthy Diet [DIET] Diet 10/23/18 Breakfast Ordered GLYCOSYLATED HEMOGLOBIN,HGBA1C [CHEM] Routine Lab 10/23/18 08:47 Ordered LIPID PANEL [CHEM] Routine Lab 10/23/18 08:47 Ordered TROPONIN I [CHEM] Q6H Lab 10/23/18 12:30 Ordered TROPONIN I [CHEM] Q6H Lab 10/23/18 18:30 Ordered Acetaminophen [Tylenol] Med 10/23/18 08:49 Ordered 650 mg PO Q4H PRN Aspirin Med 10/23/18 08:50 Once 324 mg PO ONETIME ONE Ondansetron [Zofran ODT] Med 10/23/18 08:49 Ordered 4 mg PO Q4H PRN Sodium Chloride 0.9% [Saline Flush] Med 10/23/18 06:41 Active 10 ml FLUSH ASDIRECTED PRN Sodium Chloride 0.9% [Saline Flush] Med 10/23/18 06:41 Active 2.5 ml FLUSH ASDIRECTED PRN Saline Lock Insert [OM.PC] Stat Oth 10/23/18 06:41 Ordered Sequential Compression Device [OM.PC] Per Unit Routine Oth 10/23/18 08:50 Ordered Resuscitation Status Routine Resus Stat 10/23/18 08:49 Ordered Medication Orders Acetaminophen (Tylenol) 650 mg PO Q4H PRN PRN Reason: Pain (mild 1-3) Aspirin (Aspirin) 324 mg PO ONETIME ONE Stop: 10/23/18 08:51 Ondansetron HCl (Zofran Odt) 4 mg PO Q4H PRN PRN Reason: nausea, able to take PO Sodium Chloride (Saline Flush) 10 ml FLUSH ASDIRECTED PRN PRN Reason: Keep Vein Open Sodium Chloride (Saline Flush) 2.5 ml FLUSH ASDIRECTED PRN PRN Reason: Keep Vein Open Assessment/Plan Comment:: This 48 year old male admitted with atypical chest pain 1, Atypical chest pain: Will trend troponins, monitor on telemetry. Will give ASA now, 324 mg. Will also trial GI cocktail and Pepcid IV and monitor for improvement. Obtain A1c and Lipid panel. Monitor BP, slightly elevated 140-150/ 90-100s. May need to start antihypertensive medication. VTE prophylaxis: Dispo: tonight if all troponins negative. Discharge Plan: All troponins negative. Will arrange stress test as outpatient. He can return to work but only light duty until cleared after stress test. he was noted to be new onset DM, A1c 6.8. He was visited by Coater Operator regarding lifestyle modification. Cholesterol ok. He was noted to have elevated BPs 140-150s SBP ad DBP 90-100. He was started on HCTZ 12.5 mg daily. He will be set up with PCP here to evaluate as outpatient and manage HTN and DM as needed. He is to return to ED or clinic if concerns should arise.
[2018-10-23] MEDS ORDERED: Famotidine 20 MG/2 ML SDV IVPUSH ONE (10:10)
[2018-10-23] MEDS ORDERED: Alum Hydrox/Mag Hydrox/Simeth 15 ML, Lidocaine 2% 5 ML PO ONE ×2 (10:10)
[2018-10-23 13:18] LABS: HEMOGLOBIN A1C 6.8 % (4.5-6.2)
[2018-10-23] MEDS ORDERED: Hydrochlorothiazide 12.5 MG Cap PO SCH (14:15)
--- NOTE | 2018-10-23 16:51 | US ---
EXAMINATION: Right upper quadrant ultrasound HISTORY: Elevated enzymes COMPARISON: None TECHNIQUE: Grayscale and color Doppler imaging obtained of the right upper quadrant. FINDINGS: The visualized pancreas appears normal. The liver is normal in contour and moderately increased in generalized echotexture. The gallbladder wall thickness is normal. No pericholecystic fluid or shadowing gallstones. Common bile duct measures 4 mm. Right kidney measures 11.2 cm [id number] without evidence of hydronephrosis. The sonographic Akins sign is negative. IMPRESSION: 1. Moderate fatty infiltration of the liver.
[2018-10-23 19:57] VITALS: BP 150/89
== END 2018-10-23 19:59 | disposition home or self-care (01) ==
LOC: MW.ED 06:27 → MW.MS 08:12 → MW.ICU 08:20
PROVIDERS: ADMIT Internal Medicine; ATTEND Internal Medicine
DX: R07.89 Other chest pain (principal); R73.03 Prediabetes; E66.9 Obesity, unspecified
CPT/HCPCS: 36415; 71045; 76705; 80053; 80061; 83036; 84484; 85025; 85610; 87804; 96374; 99285; A9270; G0378; J3490

== ENCOUNTER 2019-11-25 12:19 | Emergency (ER) | payer SELFPAY ==
[2019-11-25 12:43] VITALS: BP 133/83; PULSE 88
--- NOTE | 2019-11-25 13:34 | EDM.PDOC ---
ED [facility] GENERAL MEDICAL PROBLEM - General Chief Complaint: ENT Problem Stated Complaint: EARS HURTING Time Seen by Provider: 11/25/19 13:34 Source of Information: Reports: Patient History Limitations: Reports: No Limitations - History of Present Illness INITIAL COMMENTS - FREE TEXT/NARRATIVE: HISTORY AND PHYSICAL: History of present illness: Patient is a 49-year-old male presents to the ED with complaint of ear pain. Patient states for the past week he has been having cough and congestion and today he woke up with significant ear pain mostly on the right. He states he has felt feverish with chills. He denies nausea, vomiting, diarrhea, abdominal pain, chest pain, shortness of breath. He denies significant past medical history. He is taking [id number] medications without any relief of symptoms. Review of systems: As per history of present illness and below otherwise all systems reviewed and negative. Past medical history: As per history of present illness and as reviewed below otherwise noncontributory. Surgical history: As per history of present illness and as reviewed below otherwise noncontributory. Social history: No reported history of drug or alcohol abuse. Family history: As per history of present illness and as reviewed below otherwise noncontributory. Physical exam: General: Patient sitting comfortably in no acute distress and nontoxic appearing HEENT: Right TM is erythematous and bulging with loss of light reflex. atraumatic, normocephalic, pupils reactive, negative for conjunctival pallor or scleral icterus, mucous membranes moist, throat clear, neck supple, nontender, trachea midline. No meningeal signs. Lungs: Clear to auscultation, breath sounds equal bilaterally, chest nontender. Heart: S1S2, regular, negative for clicks, rubs, or overt murmur. Abdomen: Soft, nondistended, nontender. Negative for masses or hepatosplenomegaly. Negative for costovertebral tenderness. No rigidity, rebound , guarding. Pelvis: Stable nontender. Genitourinary: Deferred. Rectal: Deferred. Extremities: Atraumatic, negative for cords or calf pain. Neurovascular unremarkable. Neuro: Awake, alert, oriented. Cranial nerves II through XII unremarkable. Cerebellum unremarkable. Motor and sensory unremarkable throughout. Exam nonfocal. Notes: Diagnostics: None Therapeutics: None Prescriptions: Augmentin Impression: Right otitis media Plan: Take antibiotic as instructed Alternate Tylenol and ibuprofen as needed Return to ED as needed as discussed Follow-up with primary care provider Definitive disposition and diagnosis as appropriate pending reevaluation and review of above. bilateral ears Pain Score (Numeric/FACES): 9 - Related Data Allergies Allergy/AdvReac Type Severity Reaction Status Date / Time No Known Allergies Allergy Verified 10/23/18 06:44 Home Meds: Home Meds Amoxicillin/Potassium Clav [Augmentin 875-125 Tablet] 1 each PO BID 7 Days #14 tablet 11/25/19 [Rx] Past Medical History - Past Health History Medical/Surgical History: Denies Medical/Surgical History HEENT History: Reports: None Cardiovascular History: Reports: None Respiratory History: Reports: None Gastrointestinal History: Reports: None Genitourinary History: Reports: None Musculoskeletal History: Reports: None Neurological History: Reports: None Endocrine/Metabolic History: Reports: Obesity/BMI 30+, Other (See Below) Other Endocrine/Metabolic History: borderline type 2 diabetes - Infectious Disease History Infectious Disease History: Reports: None, Chicken Pox - Past Surgical History HEENT Surgical History: Reports: None Cardiovascular Surgical History: Reports: None Respiratory Surgical History: Reports: None GI Surgical History: Reports: None Male Surgical History: Reports: None Endocrine Surgical History: Reports: None Musculoskeletal Surgical History: Reports: None Social & Family History - Family History Family Medical History: Noncontributory - Tobacco Use Smoking Status *Q: Never Smoker - Caffeine Use Caffeine Use: Reports: None Caffeine Use Comment: rarely - Recreational Drug Use Recreational Drug Use: No - Living Situation & Occupation Living situation: Reports: Occupation: Employed ED ROS ENT - Review of Systems Review Of Systems: Comprehensive ROS is negative, except as noted in HPI. ED EXAM, ENT - Physical Exam Exam: See Below (See dictation) Course - Vital Signs Last Recorded V/S: Last Vital Signs Temp 99.3 F 11/25/19 12:40 Pulse 88 11/25/19 12:40 Resp 18 11/25/19 12:40 BP 133/83 11/25/19 12:40 Pulse Ox 98 11/25/19 12:40 Departure - Departure Time of Disposition: 13:38 Disposition: Home, Self-Care 01 Condition: Good Clinical Impression: Right otitis media - Discharge Information Referrals: PCP,None [Primary Care Provider] - Forms: ED Department Discharge Additional Instructions: The following information is given to patients seen in the emergency department who are being discharged to home. This information is to outline your options for follow-up care. We provide all patients seen in our emergency department with a follow-up referral. The need for follow-up, as well as the timing and circumstances, are variable depending upon the specifics of your emergency department visit. If you don't have a primary care physician on staff, we will provide you with a referral. We always advise you to contact your personal physician following an emergency department visit to inform them of the circumstance of the visit and for follow-up with them and/or the need for any referrals to a consulting specialist. The emergency department will also refer you to a specialist when appropriate. This referral assures that you have the opportunity for follow-up care with a specialist. All of these measure are taken in an effort to provide you with optimal care, which includes your follow-up. Under all circumstances we always encourage you to contact your private physician who remains a resource for coordinating your care. When calling for follow-up care, please make the office aware that this follow-up is from your recent emergency room visit. If for any reason you are refused follow-up, please contact the [facility] Emergency Department at and asked to speak to the emergency department charge nurse. [facility] [address] [place], [place] [id number] [place] [address] Take antibiotic as instructed Alternate Tylenol and ibuprofen as needed Return to ED as needed as discussed Follow-up with primary care provider Sepsis Event Note - Evaluation Sepsis Screening Result: No Definite Risk - Focused Exam Vital Signs: Vital Signs Temp Pulse Resp BP Pulse Ox 11/25/19 12:40 99.3 F 88 18 133/83 98 Date Exam was Performed: 11/25/19 Time Exam was Performed: 13:40
== END 2019-11-25 14:01 | disposition home or self-care (01) ==
LOC: MW.ED 12:19
DX: H66.91 Otitis media, unspecified, right ear (principal); E66.9 Obesity, unspecified; Z68.33 Body mass index [BMI] 33.0-33.9, adult
CPT/HCPCS: 99283

== ENCOUNTER 2019-12-14 19:55 | Emergency (ER) | payer SELFPAY ==
--- NOTE | 2019-12-14 20:07 | EDM.PDOC ---
ED HPI GENERAL MEDICAL PROBLEM - General Chief Complaint: Respiratory Problem Stated Complaint: COUGH Time Seen by Provider: 12/14/19 20:01 Source of Information: Reports: Patient History Limitations: Reports: No Limitations - History of Present Illness INITIAL COMMENTS - FREE TEXT/NARRATIVE: HISTORY AND PHYSICAL: History of present illness: Patient is a 49-year-old male who presents to the emergency room with complaints of a two-week history of cough. He states he was seen about 2 weeks ago and presented with ear pain at that time. He also had a dry nonproductive cough. He was prescribed Augmentin and has completed that course of antibiotic. Continues to have the cough which he states is not improved. Patient denies any fever, chills, headache, change in vision, syncope or near syncope. Denies any chest pain, back pain, shortness of breath. Denies any GI or symptoms. Patient has been eating and drinking appropriately. Denies any recent exposure to illness. No recent travel. Review of systems: As per history of present illness and below otherwise all systems reviewed and negative. Past medical history: As per history of present illness and as reviewed below otherwise noncontributory. Surgical history: As per history of present illness and as reviewed below otherwise noncontributory. Social history: See social history for further information Family history: As per history of present illness and as reviewed below otherwise noncontributory. Physical exam: General: Well-developed and well-nourished 49-year-old -[place] male. Alert and oriented. Nontoxic-appearing and in no acute distress. HEENT: Atraumatic, normocephalic, pupils equal and reactive bilaterally, negative for conjunctival pallor or scleral icterus, mucous membranes moist, TMs normal bilaterally, throat clear, neck supple, nontender, trachea midline. No drooling or trismus noted. No meningeal signs. No hot potato voice noted. Lungs: Clear to auscultation, breath sounds equal bilaterally, chest nontender. Dry nonproductive cough noted. Heart: S1S2, regular rate and rhythm without overt murmur Abdomen: Soft, nondistended, nontender. Negative for masses or hepatosplenomegaly. Negative for costovertebral tenderness. Skin: Intact, warm, dry. No lesions or rashes noted. Extremities: Atraumatic, moves all extremities per self without difficulty or deficits, negative for cords or calf pain. Neurovascular unremarkable. Neuro: Awake, alert, oriented. Cranial nerves II through XII unremarkable. Cerebellum unremarkable. Motor and sensory unremarkable throughout. Exam nonfocal. Notes: No sticks are unremarkable. With the patient being symptomatic for 2+ weeks I will treat with a Z-Francisco. Supportive care measures were reviewed and discussed. Voices understanding and is agreeable to plan of care. Denies any further questions or concerns at this time. Diagnostics: Influenza, chest x-ray Therapeutics: None Prescription: Zpak, Tessalone Impression: Bronchitis Plan: 1. Please use Tylenol and/or Ibuprofen as needed for pain and fever management. 2. Get plenty of Rest. Encourage fluids to prevent dehydration. 3. Please follow up with your primary care provider. Return to the ED as needed as discussed. Definitive disposition and diagnosis as appropriate pending reevaluation and review of above. - Related Data Allergies Allergy/AdvReac Type Severity Reaction Status Date / Time amoxicillin Allergy Other Verified 12/14/19 20:10 Home Meds: Home Meds . [No Known Home Meds] 12/14/19 [History] Past Medical History - Past Health History Medical/Surgical History: Denies Medical/Surgical History HEENT History: Reports: None Cardiovascular History: Reports: None Respiratory History: Reports: None Gastrointestinal History: Reports: None Genitourinary History: Reports: None Musculoskeletal History: Reports: None Neurological History: Reports: None Endocrine/Metabolic History: Reports: Obesity/BMI 30+, Other (See Below) Other Endocrine/Metabolic History: borderline type 2 diabetes - Infectious Disease History Infectious Disease History: Reports: None, Chicken Pox - Past Surgical History HEENT Surgical History: Reports: None Cardiovascular Surgical History: Reports: None Respiratory Surgical History: Reports: None GI Surgical History: Reports: None Male Surgical History: Reports: None Endocrine Surgical History: Reports: None Musculoskeletal Surgical History: Reports: None Social & Family History - Family History Family Medical History: Noncontributory - Caffeine Use Caffeine Use: Reports: None Caffeine Use Comment: rarely - Living Situation & Occupation Living situation: Reports: Occupation: Employed ED ROS GENERAL - Review of Systems Review Of Systems: Comprehensive ROS is negative, except as noted in HPI. ED EXAM, GENERAL - Physical Exam Exam: See Below (See dictation) Course - Vital Signs Last Recorded V/S: Last Vital Signs Temp 97.4 F 12/14/19 20:03 Pulse 89 12/14/19 20:03 Resp 20 12/14/19 20:03 BP 192/119 H 12/14/19 20:03 Pulse Ox 97 12/14/19 20:03 - Orders/Labs/Meds Orders: Active Orders 24 hr Category Date Time Status Isolation [COMM] Routine Oth 12/14/19 20:06 Active Departure - Departure Time of Disposition: 20:52 Disposition: Home, Self-Care 01 Clinical Impression: Bronchitis - Discharge Information Instructions: Acute Bronchitis, Adult, [id number] Referrals: PCP,None [Primary Care Provider] - Forms: ED Department Discharge Additional Instructions: The following information is given to patients seen in the emergency department who are being discharged to home. This information is to outline your options for follow-up care. We provide all patients seen in our emergency department with a follow-up referral. The need for follow-up, as well as the timing and circumstances, are variable depending upon the specifics of your emergency department visit. If you don't have a primary care physician on staff, we will provide you with a referral. We always advise you to contact your personal physician following an emergency department visit to inform them of the circumstance of the visit and for follow-up with them and/or the need for any referrals to a consulting specialist. The emergency department will also refer you to a specialist when appropriate. This referral assures that you have the opportunity for follow-up care with a specialist. All of these measure are taken in an effort to provide you with optimal care, which includes your follow-up. Under all circumstances we always encourage you to contact your private physician who remains a resource for coordinating your care. When calling for follow-up care, please make the office aware that this follow-up is from your recent emergency room visit. If for any reason you are refused follow-up, please contact the [facility] Emergency Department at and asked to speak to the emergency department charge nurse. [facility] [address] [place] [address] [id number] [address] [address] 1. Please use Tylenol and/or Ibuprofen as needed for pain and fever management. 2. Get plenty of Rest. Encourage fluids to prevent dehydration. 3. Please follow up with your primary care provider. Return to the ED as needed as discussed. Sepsis Event Note - Focused Exam Vital Signs: Vital Signs Temp Pulse Resp BP Pulse Ox 12/14/19 20:03 97.4 F 89 20 192/119 H 97 Date Exam was Performed: 12/14/19 Time Exam was Performed: 20:51 - My Orders Last 24 Hours: My Active Orders 12/14/19 20:06 Isolation [COMM] Routine - Assessment/Plan Last 24 Hours: My Active Orders 12/14/19 20:06 Isolation [COMM] Routine
--- NOTE | 2019-12-14 20:29 | CR ---
Chest: 2V chest were obtained. Comparison: Prior chest x-ray of 10/23/18. Heart size at the upper limits of normal with slight left ventricular configuration. Mild tortuosity of the thoracic aorta is seen. Lungs are clear with no acute parenchymal change. Bony structures shows minimal degenerative change scattered within the spine. Impression: 1. Findings as noted above. 2. Nothing acute is appreciated on 2 view chest x-ray. Diagnostic code #2 Study was dictated in MDT
[2019-12-14 21:05] VITALS: BP 159/102; PULSE 85
== END 2019-12-14 21:07 | disposition home or self-care (01) ==
LOC: MW.ED 19:55
DX: J40 Bronchitis, not specified as acute or chronic (principal); E66.9 Obesity, unspecified; Z68.31 Body mass index [BMI] 31.0-31.9, adult; Z88.1 Allergy status to other antibiotic agents
CPT/HCPCS: 71046; 71046-26; 87804; 99283; 99283-25

== ENCOUNTER 2019-12-24 20:03 | Emergency (ER) | payer SELFPAY ==
[2019-12-24 20:28] VITALS: BP 143/82; PULSE 75
--- NOTE | 2019-12-24 20:37 | EDM.PDOC ---
ED HPI GENERAL MEDICAL PROBLEM - General Chief Complaint: Lower Extremity Injury/Pain Stated Complaint: LEFT ANKLE PAIN Time Seen by Provider: 12/24/19 20:06 Source of Information: Reports: Patient History Limitations: Reports: No Limitations - History of Present Illness INITIAL COMMENTS - FREE TEXT/NARRATIVE: HISTORY AND PHYSICAL: History of present illness: Patient is a 49-year-old male who presents to the emergency room today with complaints of left lateral ankle pain. He states yesterday while at work he had stepped into a hole and twisted his ankle. He has had pain and soft tissue swelling since the injury. He has been able to weight-bear although does cause pain. He denies any numbness, tingling or saddle paresthesias. He denies any other extremity involvement. Review of systems: As per history of present illness and below otherwise all systems reviewed and negative. Past medical history: As per history of present illness and as reviewed below otherwise noncontributory. Surgical history: As per history of present illness and as reviewed below otherwise noncontributory. Social history: See social history for further information Family history: As per history of present illness and as reviewed below otherwise noncontributory. Physical exam: General: Well-developed and well-nourished 49-year-old -[place] male. Alert and oriented. Nontoxic-appearing and in no acute distress. HEENT: Atraumatic, normocephalic, pupils equal and reactive bilaterally, negative for conjunctival pallor or scleral icterus, mucous membranes moist, trachea midline. No drooling or trismus noted. No meningeal signs. No hot potato voice noted. Lungs: Clear to auscultation, breath sounds equal bilaterally, chest nontender. Heart: S1S2, regular rate and rhythm without overt murmur Abdomen: Soft, nondistended, nontender. Skin: Soft tissue swelling noted to the left lateral ankle. Intact, warm, dry. No lesions or rashes noted. Extremities: Pain with palpation to the left lateral ankle, soft tissue swelling is noted. Strong pedal and pretibial pulses. Moves all extremities per self without difficulty or deficits, negative for cords or calf pain. Neurovascular unremarkable. Neuro: Awake, alert, oriented. Cranial nerves II through XII unremarkable. Cerebellum unremarkable. Motor and sensory unremarkable throughout. Exam nonfocal. Notes: X-ray shows no acute findings. Will place patient with Pasha wrap and crutches for comfort to be nonweightbearing over the next 2 to 3 days for ankle sprain. Encouraged him to follow-up with an orthopedic provider if he continues to have discomfort. Supportive care measures were reviewed and discussed. Voices understanding and is agreeable to plan of care. Denies any further questions or concerns at this time. Diagnostics: Ankle x-ray Therapeutics: Pasha wrap and crutches Prescription: Diclofenac Impression: Ankle Sprain, Left Plan: 1. Rest, ice, elevate the affected extremity. Please wear the splint as directed. 2. Tylenol and/or Ibuprofen as needed for pain management. 3. Follow up with the Orthopedic provider as we discussed. Return to the ED as needed and as discussed. Definitive disposition and diagnosis as appropriate pending reevaluation and review of above. Duration: Day(s): left ankle Pain Score (Numeric/FACES): 8 - Related Data Allergies Allergy/AdvReac Type Severity Reaction Status Date / Time amoxicillin Allergy Other Verified 12/24/19 20:25 Home Meds: Home Meds . 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 Hematologic History: Reports: None Immunologic History: Reports: None Oncologic (Cancer) History: Reports: None Dermatologic History: Reports: None - Infectious Disease History Infectious Disease History: Reports: None - Past Surgical History Head Surgeries/Procedures: Reports: None HEENT Surgical History: Reports: None Cardiovascular Surgical History: Reports: None Respiratory Surgical History: Reports: None GI Surgical History: Reports: None Male Surgical History: Reports: None Endocrine Surgical History: Reports: None Musculoskeletal Surgical History: Reports: None Social & Family History - Family History Family Medical History: Noncontributory - Tobacco Use Smoking Status *Q: Never Smoker - Caffeine Use Caffeine Use: Reports: Soda, Tea Caffeine Use Comment: rarely - Recreational Drug Use Recreational Drug Use: No - Living Situation & Occupation Living situation: Reports: Occupation: Employed Review of Systems - Review of Systems Review Of Systems: Comprehensive ROS is negative, except as noted in HPI. ED EXAM, GENERAL - Physical Exam Exam: See Below (See dictation) Course - Vital Signs Last Recorded V/S: Last Vital Signs Temp 97.5 F 12/24/19 20:26 Pulse 75 12/24/19 20:26 Resp 18 12/24/19 20:26 BP 143/82 H 12/24/19 20:26 Pulse Ox 98 12/24/19 20:26 - Orders/Labs/Meds Orders: Active Orders 24 hr Category Date Time Status DME for Discharge [COMM] Stat Oth 12/24/19 21:28 Ordered Departure - Departure Time of Disposition: 21:31 Disposition: Home, Self-Care 01 Clinical Impression: Left ankle sprain Qualifiers: Encounter type: initial encounter Involved ligament of ankle: unspecified ligament Qualified Code(s): S93.402A - Sprain of unspecified ligament of left ankle, initial encounter - Discharge Information Instructions: Ankle Sprain, [id number] Referrals: PCP,None [Primary Care Provider] - Forms: ED Department Discharge Additional Instructions: The following information is given to patients seen in the emergency department who are being discharged to home. This information is to outline your options for follow-up care. We provide all patients seen in our emergency department with a follow-up referral. The need for follow-up, as well as the timing and circumstances, are variable depending upon the specifics of your emergency department visit. If you don't have a primary care physician on staff, we will provide you with a referral. We always advise you to contact your personal physician following an emergency department visit to inform them of the circumstance of the visit and for follow-up with them and/or the need for any referrals to a consulting specialist. The emergency department will also refer you to a specialist when appropriate. This referral assures that you have the opportunity for follow-up care with a specialist. All of these measure are taken in an effort to provide you with optimal care, which includes your follow-up. Under all circumstances we always encourage you to contact your private physician who remains a resource for coordinating your care. When calling for follow-up care, please make the office aware that this follow-up is from your recent emergency room visit. If for any reason you are refused follow-up, please contact the [facility] Emergency Department at and asked to speak to the emergency department charge nurse. [facility] [address] [place] [address] [facility] [address] [place] [id number] 1. Rest, ice, elevate the affected extremity. Please wear the splint as directed. 2. Tylenol and/or Ibuprofen as needed for pain management. 3. Follow up with the Orthopedic provider as we discussed. Return to the ED as needed and as discussed. Sepsis Event Note - Evaluation Sepsis Screening Result: No Definite Risk - Focused Exam Vital Signs: Vital Signs Temp Pulse Resp BP Pulse Ox 12/24/19 20:26 97.5 F 75 18 143/82 H 98 Date Exam was Performed: 12/24/19 Time Exam was Performed: 21:30 - My Orders Last 24 Hours: My Active Orders 12/24/19 21:28 DME for Discharge [COMM] Stat - Assessment/Plan Last 24 Hours: My Active Orders 12/24/19 21:28 DME for Discharge [COMM] Stat
--- NOTE | 2019-12-24 21:25 | CR ---
INDICATION: Twisted left ankle yesterday TECHNIQUE: Ankle radiograph 3 views left COMPARISON: None FINDINGS: Bone: No acute fractures or aggressive bone lesions are identified. Joint: The ankle mortise joint and the visualized hindfoot joints are unremarkable in appearance. No significant ankle effusion is seen. Soft tissue: The Kager fat pad and the Achilles` tendon is normal in appearance. No radiopaque foreign bodies are seen. IMPRESSION: 1. No acute osseous injuries or abnormalities are noted. Dictated by: Cristobal Ferguson MD @ 12/24/2019 21:23:39 (Electronically Signed)
== END 2019-12-24 21:49 | disposition home or self-care (01) ==
LOC: MW.ED 20:03
DX: S93.402A Sprain of unspecified ligament of left ankle, initial encounter (principal); E66.9 Obesity, unspecified; Z88.0 Allergy status to penicillin; W22.8XXA Striking against or struck by other objects, initial encounter; Y99.0 Civilian activity done for income or pay
CPT/HCPCS: 73610-26-LT; 73610-LT; 99283-25